=== PATIENT | male | born 1965 | race Caucasian/White ===

== ENCOUNTER → 2022-11-23 12:02 | Outpatient (CLI) | payer OTHER, SELFPAY ==
--- NOTE | ~2022-11-23 | XR_ITS ---
XR_CERV2-3V_CR DATE: 11/23/2022 12:25 INDICATION: Cervical fusion follow-up TECHNIQUE: AP and lateral views COMPARISON: None FINDINGS: C1 and C2 are normally aligned and the odontoid process is intact. Prominent anterior osteophyte formations at C4-5 and C5-6 with mild loss of interspace height. Severe degenerative disease at C6-7. Uncovertebral joint spurring at lower cervical spine, prominent at C6-7. Status post anterior and interbody spinal fusion at C7-T1. IMPRESSION: Status post anterior and interbody spinal fusion at C7-T1 Multilevel degenerative disc disease of cervical spine, most severe at C6-7 Reviewed, dictated and finalized at [facility]. Reviewed, dictated and finalized at location B. [employer]
== END ==
PROVIDERS: PCP Family Medicine
DX: M43.23 Fusion of spine, cervicothoracic region (principal); Z98.1 Arthrodesis status; M50.323 Other cervical disc degeneration at C6-C7 level
CPT/HCPCS: 72040

== ENCOUNTER → 2023-01-13 15:46 | Outpatient (CLI) | payer OTHER, SELFPAY ==
--- NOTE | ~2023-01-13 | XR_ITS ---
EXAMINATION: XR_CERV2-3V_CR DATE: 01/13/2023 16:14 INDICATION: Cervical spine fusion. TECHNIQUE: 4 views of cervical spine were obtained. COMPARISON: Cervical spine radiographs 11/23/2022 FINDINGS: There is mild kyphosis of lower cervical spine. There are changes of anterior fusion proced ure at C7-T1 with interbody device and anterior plate and screws. There is mildly decreased disc heig ht at C4-C5 and C5-C6 with bulky anterior endplate osteophytes. There is severely decreased disc heig ht at C6-C7 with bridging anterior endplate osteophytes. The facet joints are unremarkable. No centra l canal stenosis or prevertebral soft tissue swelling. IMPRESSION: 1. Anterior fusion procedure at C7-T1. 2. Severe cervical spondylosis. Reviewed, dictated and finalized at location A. [employer]ER
== END ==
DX: M47.892 Other spondylosis, cervical region (principal); Z98.1 Arthrodesis status
CPT/HCPCS: 72040